=== PATIENT | male | born 1990 | race Caucasian/White ===

== ENCOUNTER 2016-05-18 01:44 | Emergency (ER) | payer BC, OTHER ==
[~2016-05-18] VITALS: Ht 162.6 cm; Wt 66.5 kg
[2016-05-18 01:55] VITALS: Ht 162.6 cm; Wt 66.5 kg
[2016-05-18] MEDS ORDERED: SOD CHLORIDE 0.9% 1,000 ML IV STA (02:30)
[2016-05-18] MEDS ORDERED: DICLOFENAC SODIUM 37.5 MG/ML VIAL IV STA (02:30)
[2016-05-18] MEDS ORDERED: ONDANSETRON 4 MG INJ IV STA (02:30)
[2016-05-18 03:06] LABS: ALBUMIN 4.4 g/dl (3.3-4.9); POTASSIUM 3.7 mmol/L (3.5-5.1)
[2016-05-18 03:09] LABS: ALBUMIN/GLOBULIN RATIO 1.41; BILIRUBIN,INDIRECT 0.6 mg/dl (0-1.1); BILIRUBIN,TOTAL 0.6 mg/dl (0.2-1.3); CREATININE 0.79 mg/dl (0.61-1.24); TOTAL PROTEIN 7.5 g/dl (6.1-8.1)
[2016-05-18 04:11] LABS: BASOPHILS % 0.3 % (0.0-2.0); EOSINOPHILS # 0.2 10^3/ul (0.0-0.5); EOSINOPHILS % 1.1 % (0.0-7.0); HEMATOCRIT 50.1 % (42.0-52.0); HEMOGLOBIN 16.9 g/dl (14.0-18.0); LYMPHOCYTES # 1.3 10^3/ul (0.8-2.9); LYMPHOCYTES % 8.5 % (15.0-51.0); MEAN CORPUSCULAR HEMOGLOBIN 29.6 pg (29.0-33.0); MEAN CORPUSCULAR HGB CONC 33.7 g/dl (32.0-37.0); MEAN CORPUSCULAR VOLUME 87.8 fl (82.0-101.0); MONOCYTE # 0.7 10^3/ul (0.3-0.9); MONOCYTES % 4.3 % (0.0-11.0); NEUTROPHIL # 13.6 10^3/ul (1.6-7.5); NEUTROPHILS % 85.8 % (39.0-77.0); PLATELET COUNT 219 10^3/UL (140-440); RED CELL DISTRIBUTION WIDTH 12.7 % (11.5-14.5); UNCORRECTED WBC 15.9 10^3/ul (4.8-10.8); WHITE BLOOD COUNT 15.9 10^3/ul (4.8-10.8)
[2016-05-18 04:14] LABS: CONDITION 1
[2016-05-18] MEDS ORDERED: ONDA4TAB14 PO (04:16)
[2016-05-18] MEDS ORDERED: IBUP-1542 PO (04:16)
--- NOTE | 2016-05-18 04:32 | ERD ---
ER Documentation Chief Complaint Date/Time DATE: 05/18/16 TIME: 04:32 Chief Complaint epigastric pain,NV,minor TUCKER HPI Patient is a 25-year-old male with no medical problems who presents with abdominal pain and vomiting. He also is complaining of headache and dizziness. The abdominal pain is in the upper epigastric area. Symptoms started yesterday. He never had this before. This started after eating spicy food. Upon review of old medical records this is the patient's first visit to the ER. He does not currently have a primary doctor. ROS All systems reviewed and are negative except as per history of present illness. Medications Home Meds Active Scripts Ondansetron (Ondansetron Odt) 4 Mg Tab.rapdis, 4 MG PO Q6H Y for NAUSEA AND/OR VOMITING, #30 TAB Prov:JAMAR RAJAN MD 05/18/16 Ibuprofen* (Motrin*) 600 Mg Tab, 600 MG PO Q6H Y for PAIN AND OR ELEVATED TEMP, #30 TAB Prov:JAMAR RAJAN MD 05/18/16 Allergies Allergies: Coded Allergies: No Known Allergy (Unverified , 05/18/16) PMhx/Soc History of Surgery: Yes (APPY, LT ELBOW ) Anesthesia Reaction: No Hx Neurological Disorder: No Hx Respiratory Disorders: No Hx Cardiac Disorders: No Hx Psychiatric Problems: No Hx Miscellaneous Medical Probl: No Hx Alcohol Use: No Hx Substance Use: No Hx Tobacco Use: No Smoking Status: Former smoker FmHx Family History: No diabetes Physical Exam Vitals Vital Signs Date Time Temp Pulse Resp B/P Pulse Ox O2 Delivery O2 Flow Rate FiO2 05/18/16 03:34 97 17 129/65 98 Room Air 05/18/16 02:15 98.1 119 18 149/97 99 Room Air 05/18/16 01:55 99.4 119 18 143/85 98 Physical Exam Const: Moderate distress secondary to vomiting Head: Atraumatic Eyes: Normal Conjunctiva ENT: Normal External Ears, Nose and Mouth. Neck: Full range of motion..~ No meningismus. Resp: Clear to auscultation bilaterally Cardio: Regular rate and rhythm, no murmurs Abd: Soft, midepigastric tenderness to palpation without rebound or guarding Skin: No petechiae or rashes Back: No midline or flank tenderness Ext: No cyanosis, or edema Neur: Awake and alert Psych: Normal Mood and Affect Result Diagram: 05/18/16 0230 05/18/16 0230 Results 24 hrs Laboratory Tests Test 05/18/16 02:30 Alanine Aminotransferase (ALT/SGPT) 22IU/L Albumin 4.4g/dl Albumin/Globulin Ratio 1.41 Alkaline Phosphatase 98IU/L Anion Gap 19 Aspartate Amino Transf (AST/SGOT) 20IU/L Basophils # 0.010^3/ul Basophils % 0.3% Blood Urea Nitrogen 16mg/dl Calcium Level 9.0mg/dl Carbon Dioxide Level 24mmol/L Chloride Level 107mmol/L Creatinine 0.79mg/dl Direct Bilirubin 0.00mg/dl Eosinophils # 0.210^3/ul Eosinophils % 1.1% Globulin 3.10g/dl Glucose Level 130mg/dl Hematocrit 50.1% Hemoglobin 16.9g/dl Indirect Bilirubin 0.6mg/dl Lipase 63U/L Lymphocytes # 1.310^3/ul Lymphocytes % 8.5% Mean Corpuscular Hemoglobin 29.6pg Mean Corpuscular Hemoglobin Concent 33.7g/dl Mean Corpuscular Volume 87.8fl Mean Platelet Volume 9.0fl Monocytes # 0.710^3/ul Monocytes % 4.3% Neutrophils # 13.610^3/ul Neutrophils % 85.8% Nucleated Red Blood Cells # 0.010^3/ul Nucleated Red Blood Cells % 0.0/100WBC Platelet Count 64204^3/UL Potassium Level 3.7mmol/L Red Blood Count 5.7010^6/ul Red Cell Distribution Width 12.7% Sodium Level 146mmol/L Total Bilirubin 0.6mg/dl Total Protein 7.5g/dl White Blood Count 15.910^3/ul Current Medications Medications (Trade) Dose Ordered Sig/Andrae Route PRN Reason Start Time Stop Time Status Last Admin Dose Admin Sodium Chloride (NS) 1,000 ml @ 1,000 mls/hr Q1H STAT IV 05/18/16 02:30 05/18/16 03:29 DC 05/18/16 02:34 Ondansetron HCl (Zofran Inj) 4 mg ONCE STAT IV 05/18/16 02:30 05/18/16 02:31 DC 05/18/16 02:35 Diclofenac Sodium (Dyloject) 37.5 mg ONCE STAT IV 05/18/16 02:30 05/18/16 02:31 DC 05/18/16 02:34 Procedures/MDM Patient is a 25-year-old male presents with abdominal pain and vomiting. His white blood cell count is elevated but LFTs and lipase are normal. He has had his appendix removed in the past. At this point I doubt cholecystitis, pancreatitis, appendicitis, or bowel obstruction. I believe outpatient management is appropriate. The patient will need to follow-up with the local clinics within 24 hours for reevaluation as he does not currently have a primary doctor. The patient can return for any worsening symptoms. The patient will be given a prescription for ibuprofen and Zofran. Departure Diagnosis: Primary Impression: Vomiting Vomiting type: unspecified Vomiting Intractability: non-intractable Nausea presence: with nausea Qualified Code: R11.2 - Non-intractable vomiting with nausea, unspecified vomiting type Additional Impression: Epigastric pain Condition: Fair Patient Instructions: Vomiting (6Y-Adult), Epigastric Pain (Uncertain Cause) Referrals: [facility] YOU HAVE RECEIVED A MEDICAL SCREENING EXAM AND THE RESULTS INDICATE THAT YOU DO NOT HAVE A CONDITION THAT REQUIRES URGENT TREATMENT IN THE EMERGENCY DEPARTMENT. FURTHER EVALUATION AND TREATMENT OF YOUR CONDITION CAN WAIT UNTIL YOU ARE SEEN IN YOUR DOCTORS OFFICE WITHIN THE NEXT 1-2 DAYS. IT IS YOUR RESPONSIBILITY TO MAKE AN APPOINTMENT FOR FOLOW-UP CARE. IF YOU HAVE A PRIMARY DOCTOR --you should call your primary doctor and schedule an appointment IF YOU DO NOT HAVE A PRIMARY DOCTOR YOU CAN CALL OUR PHYSICIAN REFERRAL HOTLINE AT IF YOU CAN NOT AFFORD TO SEE A PHYSICIAN YOU CAN CHOSE FROM THE FOLLOWING [facility] [address] [facility] [facility] [address] [facility] [facility] [address] [facility] [facility] [address] [facility]. [facility] [address] [facility]. [facility]. [address] Additional Instructions: FOLLOW UP WITH YOUR PRIMARY CARE PHYSICIAN TOMORROW.Return to this facility if you are not improving as expected. JAMAR RAJAN MD May 18, 2016 04:32
[2016-05-18 05:08] VITALS: BP 123/77; PULSE 93; RESP 17; TEMP 98.8
== END 2016-05-18 05:08 | disposition home or self-care (01) ==
LOC: E/R 01:44
DX: R11.2 Nausea with vomiting, unspecified (principal); R10.13 Epigastric pain; R40.2142 Coma scale, eyes open, spontaneous, at arrival to emergency department; R40.2252 Coma scale, best verbal response, oriented, at arrival to emergency department; R40.2362 Coma scale, best motor response, obeys commands, at arrival to emergency department; Z87.891 Personal history of nicotine dependence
CPT/HCPCS: 36415; 80053; 83690; 85025; 96374; 96375; J2405; J7030